=== PATIENT | female | born 1975 | race Caucasian/White ===

== ENCOUNTER 2025-02-01 19:35 | Emergency (ER) | payer OTHER, SELFPAY ==
--- OUTSIDE RECORDS SUMMARY | 2025-01-19 13:40 | XMS_ITS | Encounter Summary ---
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 Name Role Phone Unavailable Primary Care Provider Unavailabl e Reason for Visit * Reason Comments Mass On scalp Encounter Details Date Type Department Care Team (Late st Contact Info) Description 01/19/2025 1:40 PM EDT Office Visit [facility] [address] [place] [address] [place] [address] [place] [address] [place] [address] Scalp mass (Primary Dx) Social History Tobacco Use Types Packs/Day Years Used Date Smoking Tobacco: Every Day Cigarettes 30 Started: 1994 Smokeless Tobacco: Never Tobacco Cessation:Ready to Q uit: Not Asked; Counseling Given: Not Answered Alcohol Use Standard Drinks/Week Comments Not Currently 0 (1 standard drink = 0.6 oz pur e alcohol) Comments No Sex and Gender Information Value Date Recorded Sex Assigned at Not on file Legal Sex Female 9:16 AM EST Gender Identity Not on file Sexual Orientation Not on file documented as of this encounter Last Filed Vital Signs Vital Sign Reading Time Taken Comments Blood Pressure 122/84 01/19/2025 1:22 PM EDT Pulse - - Temperature - - Respiratory Rate - - Oxygen Saturation - - Inhaled Oxygen Concentration - - Weight 116.7 kg (257 lb 3.2 oz) 01/19/2025 1:22 PM EDT Height 165.1 cm (5' 5 ) 01/19/2025 1:22 PM EDT Body Mass Index 42.8 01/19/2025 1:22 PM EDT documented in this encounter Progress Notes * Gil Quintana MD - 01/19/2025 1:40 PM EDT Subjective: Patient ID: Sugey Sheppard is a 49 y.o. female. Chief Complaint Patient presents with Mass On scalp HPI Patients past medical, family and social histories were reviewed and updated. There were no changesexcept as noted. 49 female, presents with scalp mass. Present for quite some time-many years. Increasing in size. Now with some pain and tenderness. No history of infection, drainage, or excision. No Known Allergies Current Outpatient Medications: buPROPion (WELLBUTRIN XL) 150 mg Oral Tablet Sustained Release 24 hr, take one (1) tablet every dayby oral route., Disp: , Rfl: ergocalciferol (DRISDOL) 1,250 mcg (50,000 unit) Oral Capsule, , Disp: , Rfl: famotidine (PEPCID ORAL), Take 20 mg by mouth daily. (Patient taking differently: Take 20 mg by mouth as needed.), Disp: , Rfl: predniSONE (DELTASONE) 10 mg Oral Tablet, Take 4 tabs a day for 2 days, then 3 tabs a day for 2 days, then 2 tabs a day for 2 days, then one tab a day for four days (Patient not taking: Reported on 01/19/2025), Disp: 22 Tablet, Rfl: 0 Patient Active Problem List Diagnosis S/P left rotator cuff repair Scalp mass Social History Socioeconomic History Marital status: Single Spouse name: Not on file Number of children: Not on file Years of education: Not on file Highest education level: Not on file Occupational History Not on file Tobacco Use Smoking status: Every Day Average packs/day: 1 pack/day for 30.0 years (30.0 ttl pk-yrs) Types: Cigarettes Start date: 1994 Smokeless tobacco: Never Vaping Use Vaping status: Never Used Substance and Sexual Activity Alcohol use: Not Currently Drug use: Never Sexual activity: Not on file Other Topics Concern Not on file Social History Narrative Not on file Social Drivers of Health Financial Resource Strain: Not on file Food Insecurity: Not on file Transportation Needs: Not on file Physical Activity: Not on file Stress: Not on file Social Connections: Not on file Intimate Partner Violence: Not on file Housing Stability: Not on file Family History Problem Relation Age of Onset Anesth Problems Mother High Blood Pressure Father Arthritis Paternal Grandmother Review of Systems Constitutional: Positive for appetite change. Negative for activity change, fatigue and fever. HENT: Negative for congestion and sore throat. Respiratory: Negative for chest tightness and shortness of breath. Cardiovascular: Negative for chest pain and palpitations. Gastrointestinal: Negative for abdominal pain, constipation, diarrhea, nausea and vomiting. Musculoskeletal: Negative for back pain and myalgias. Neurological: Positive for dizziness. Negative for headaches. Objective: Vitals: 01/19/25 1322 BP: 122/84 BP Location: Left arm Patient Position: Sitting Weight: 257 lb 3.2 oz (116.7 kg) Height: 5' 5 (1.651 m) Body mass index is 42.8 kg/m??. Physical Exam Constitutional: Appearance: She is well-developed. HENT: Head: Normocephalic and atraumatic. Eyes: Conjunctiva/sclera: Conjunctivae normal. Pupils: Pupils are equal, round, and reactive to light. Cardiovascular: Rate and Rhythm: Normal rate and regular rhythm. Pulmonary: Effort: Pulmonary effort is normal. Breath sounds: Normal breath sounds. Abdominal: General: Bowel sounds are normal. Palpations: Abdomen is soft. Musculoskeletal: General: Normal range of motion. Cervical back: Normal range of motion. Comments: Mass on scalp, fixed, firm, approximately 3 cm Skin: General: Skin is warm. Neurological: Mental Status: She is alert and oriented to person, place, and time. Psychiatric: Behavior: Behavior normal. Thought Content: Thought content normal. Assessment & Plan Impression: Scalp mass Plan: 1. Proceed to operative for excisional biopsy of scalp mass. Risk discussed include bleeding, infection, seroma, recurrence. No follow-ups on file. documented in this encounter Plan of Treatment Scheduled Orders Name Type Priority Associated Diagnoses Orde r Schedule SURGICAL/PROCEDURE CASE REQUEST Procedures Routine Scalp mass Ordered: 01/19/2025 documented as of this encounter Visit Diagnoses Diagnosis Scalp mass- Primary Localized superficial swelling, mass, or lump documented in this encounter Historical Medications * This list may reflect changes made after this encounter. ergocalciferol (DRISDOL) 1,250 mcg (50,000 unit) Oral Capsule 01/05/2025 buPROPion (WELLBUTRIN XL) 150 mg Oral Tablet Sustained Release 24 hr take one (1) tablet every day by oral route. 01/01/2025 added in this encounter
--- OUTSIDE RECORDS SUMMARY | 2025-01-30 06:01 | XMS_ITS | Encounter Summary ---
Author [place] [address] Care Team Providers Care Soda Clerk Name Role Phone Unavailable Primary Care Provider Unavailabl e Reason for Visit * Auth/Cert/Inpt Specialty Diagnoses / Procedures Referred By Contac t Referred To Contact Diagnoses Scalp mass Scalp mass [R22.0] Procedures AR EXCISION TUMOR SOFT TISS FACE/SCALP SUBQ <2CM Excisional biopsy scalp mass Referral ID Status Reason Start Date Expiration Date Visits Re quested Visits Authorized [id number] 1 1 Encounter Details Date Type Department Care Team (Latest Contact Info) Description 01/30/2025 6:01 AM EDT - 01/30/2025 9:51 AM EDT Hospital Encounter CAM SAME DAY SURGERY [address] [place] [address] Gil Quintana MD [address] [place] [address] Scalp mass Discharge Disposition: Home or Self Care Social History Tobacco Use Types Packs/Day Years Used Date Smoking Tobacco: Every Day Cigarettes 1 30 Started: 1994 Smokeless Tobacco: Never Alcohol Use Standard Drinks/Week Comments Not Currently [...] Sign Reading Time Taken Comments Blood Pressure 147/80 01/30/2025 9:35 AM EDT Pulse 64 01/30/2025 9:35 AM EDT Temperature 36.1 C (97 F) 01/30/2025 9:35 AM EDT Respiratory Rate 16 01/30/2025 9:35 AM EDT Oxygen Saturation 100% 01/30/2025 9:35 AM EDT Inhaled Oxygen Concentration - - Weight 117.8 kg (259 lb 11.2 oz) 01/30/2025 6:27 AM EDT Height 165.1 cm (5' 5 ) 01/30/2025 6:27 AM EDT Body Mass Index 43.22 01/30/2025 6:27 AM EDT documented in this encounter Discharge Instructions * Discharge Instructions* Gil Quintana MD - 01/30/2025 7:11 AM EDT Images from the original note were not included. +++++++++++++++++++++++++++++++++++++++++++++++++++++++++++++++++++ [facility] Discharge Instructions - Following Anesthesia We appreciate the opportunity to care for you today! Here are a few reminders as you head home: A responsible adult, 18 years or older must be in attendance until tomorrow morning. Rest quietly today. May resume usual diet as tolerated or as directed by your surgeon. Do not drive or operate any machinery until tomorrow morning or as instructed. Do not make any legal or important decisions for the next 24 hours. Do not drink alcoholic beverages or take sleeping pills for 24 hours unless otherwise directed. If you received a nerve block for post-operative pain control, protect your blocked arm/leg. It maybe numb. Carefully pad your limb to prevent pressure sores and other injuries. Be careful with applying cold/warm to the blocked limb. Numbness will alter the sensation of the limb and could damage your skin if you cannot correctly feel the temperature. If you have questions or concerns regarding your anesthesia experience, please call our office at . Get Well Soon! [facility] +++++++++++++++++++++++++++++++++++++++++++++++++++++++++++++++++++ Call Surgeon if you have: Temperature greater than 100.4 Persistent nausea and vomiting Severe uncontrolled pain Redness, tenderness, or signs of infection (pain, swelling, redness, odor or green/yellow dischargearound the site) Difficulty breathing, headache or visual disturbances Hives Persistent dizziness or light-headedness Extreme fatigue Any other questions or concerns you may have after discharge In an emergency, call 911 or go to an Emergency Department at a nearby hospital It is important to bring a complete, current list of your medications to any medical appointments or hospitalizations. 1. It is OK to shower. No soaking/swimming 2. Activity as tolerated. It is OK to use stairs, and lift items as needed. 3. No driving if experiencing significant pain at the incisions sites, or if taking pain medication. 4. Diet as tolerated. Clear liquids if experiencing any nausea or vomiting. 5. Ok shower on Sunday 6. Please call [phone] Option #2 for a follow-up appointment in 7 to 14 days. documented in this encounter Medications at Time of Discharge buPROPion (WELLBUTRIN XL) 150 mg Oral Tablet Sustained Release 24 hr take one (1) tablet every day by oral route. 01/01/2025 ergocalciferol (DRISDOL) 1,250 mcg (50,000 unit) Oral Capsule 01/05/2025 famotidine (PEPCID ORAL) Take 20 mg by mouth daily. oxyCODONE-acetami nophen (PERCOCET) 5-325 mg Oral Tablet Take 1 Tablet by mouth every 6 hours as needed for Major Surgery/Traum a (G89.18). 15 Tablet 01/30/2025 documented as of this encounter Ordered Prescriptions Prescription Sig Dispense Quantity Refills Last Filled Start Date End Date oxyCODONE-acetamino phen (PERCOCET) 5-325 mg Oral Tablet Take 1 Tablet by mouth every 6 hours as needed for Major Surgery/Trau ma (G89.18). 15 Tablet 01/30/2025 documented in this encounter Discharge Disposition Disposition Code Departure Means Destination Comment s Home or Self Care Car Home documented in this encounter Progress Notes * Gil Quintana MD - 01/30/2025 8:41 AM EDT Attached media from the original note were not included. documented in this encounter H&P Notes * Julia Chamberlain NP - 01/30/2025 7:37 AM EDT H&P Update History & Physical Reviewed. Pt interviewed and examined. No changes in health. ROS: No cp, sob, fever, cough or recent illness. Vitals: 01/30/25 0625 BP: (!) 173/90 Pulse: 80 Resp: 17 Temp: 97.4 ??F (36.3 ??C) SpO2: 100% General= anxious, obese. Head= left frontal scalp mass, fixed, non-tender, no redness/drainage noted. CV=RRR. Lungs=CTA BL. Abd=Soft, nt, nd, +bs. Ext=No edema, 2+ radial and DP bilaterally. Anesthesia to manage BP. Source Note - Gil Quintana MD - 01/19/2025 1:40 PM [...] follow-ups on file. documented in this encounter Procedure Notes * Gil Quintana MD - 01/30/2025 9:38 AM EDT [facility] OPERATIVE/PROCEDURE NOTE Sugey Sheppard January 30, 2025 Body mass index is 43.22 kg/m??. Active Hospital Problems Diagnosis *Scalp mass PRE-OP DIAGNOSIS: Scalp mass [R22.0] POST-OP DIAGNOSIS: Scalp mass [R22.0] PROCEDURE(S): Procedure(s): Excisional biopsy scalp mass (7CM) SURGEON(S): Surgeons and Role: * Gil Quintana MD - Primary OR STAFF: [employer] Account Assistant: Bhargavi Wilde RN Scrub Finch: Gianna Ramesh RN Scrub Assist: China Corrigan CSA ANESTHESIA: Monitored Anesthesia Care SPECIMENS: ID Type Source Tests Collected by Time Destination 1 : SCALP MASS Tissue Scalp PATHOLOGY TISSUE REQUEST Gil Quintana MD 01/30/2025 0827 ESTIMATED BLOOD LOSS: 5 mL INDICATIONS FOR THE PROCEDURE: The patient is a 50-year-old female who presented to my office with a chronic scalp mass. This has been present for many years, have been increasing in size, and associate with pain and tenderness. DETAILS OF THE PROCEDURE: The patient was taken to the operating room and placed in the supine position on the operating room table. After adequate induction of MAC anesthesia, the patient's scalp was prepped and draped in standard surgical fashion. Next the area was infiltrated with 1/2% Marcaine with epinephrine. Next a vertical incision was made, and this was deepened through the dermis until the mass was identified. The mass was very large, and attached to the skull itself. This was taken down using blunt dissection as well as cautery. All elements of the mass were dissected free and passed off the table of the specimen. This measured at least 7 cm. Hemostasis was obtained. The wound was irrigated with saline and suctioned free. The wound was then closed with a running 4-0 Monocryl subcuticular stitch. At the end of the case all needle, sponge, and instrument counts were correct. The patient tolerated the procedure well and was transferred to the recovery room awake, alert, and instable condition. DISPOSITION/POST PROC COURSE: Stable to Post Anesthesia Care Unit M Micah Quintana MD Date: 01/30/2025 * Gil Quintana MD - 01/30/2025 8:43 AM EDT [facility] OPERATIVE/PROCEDURE NOTE Sugey Sheppard January 30, 2025 Body mass index is 43.22 kg/m??. Active Hospital Problems Diagnosis *Scalp mass PRE-OP DIAGNOSIS: Scalp mass [R22.0] POST-OP DIAGNOSIS: Scalp mass [R22.0] PROCEDURE(S): Procedure(s): Excisional biopsy scalp mass (7CM) SURGEON(S): Surgeons and Role: * Gil Quintana MD - Primary OR STAFF: [employer] Account Assistant: Bhargavi Wilde RN Scrub Finch: Gianna Ramesh RN Scrub Assist: China Corrigan CSA ANESTHESIA: Monitored Anesthesia Care SPECIMENS: ID Type Source Tests Collected by Time Destination 1 : SCALP MASS Tissue Scalp PATHOLOGY TISSUE REQUEST Gil Quintana MD 01/30/2025 0827 ESTIMATED BLOOD LOSS: 5 mL INDICATIONS FOR THE PROCEDURE: The patient is a 50-year-old female who presented to my office with a chronic scalp mass. This has been present for many years, have been increasing in size, and associate with pain and tenderness. DETAILS OF THE PROCEDURE: The patient was taken to the operating room and placed in the supine position on the operating room table. After adequate induction of MAC anesthesia, the patient's scalp was prepped and draped in standard surgical fashion. Next the area was infiltrated with 1/2% Marcaine with epinephrine. Next a vertical incision was made, and this was deepened through the dermis until the mass was identified. The mass was very large, and attached to the skull itself. This was taken down using blunt dissection as well as cautery. All elements of the mass were dissected free and passed off the table of the specimen. This measured at least 7 cm. Hemostasis was obtained. The wound was irrigated with saline and suctioned free. The wound was then closed with a running 4-0 Monocryl subcuticular stitch. At the end of the case all needle, sponge, and instrument counts were correct. The patient tolerated the procedure well and was transferred to the recovery room awake, alert, and instable condition. DISPOSITION/POST PROC COURSE: Stable to Post Anesthesia Care Unit Gil Quintana MD Date: 01/30/2025 documented in this encounter Nursing Notes * Julia Rao RN - 01/19/2025 2:48 PM EDT Images from the original note were not included. PREPARING FOR YOUR SURGERY Date of Surgery: 01.30.2025Sunday Arrival time: Your surgeon may have already provided this, check your paperwork from the office. Ifnot received, call your surgeon's office. Location: [facility] Medications on the Day of Surgery Take the following medications on the morning of surgery: Bupropion Medications to hold prior to surgery; Verify with your doctor for possibly discontinuing the following medications: blood thinners, aspirin, or anti-inflammatories. Stop taking all supplements 7 days prior to your surgery. Food, Drinks, Tobacco Do not eat any food after midnight. This includes gum, mints, candy, chewing tobacco, and dip. Unless otherwise instructed by your surgeon, you may consume water, Gatorade, Powerade, black coffee/tea(no milk, no cream/creamers, no sugar) up to two hours prior to your scheduled arrival time. No exceptions or substitutions to these restrictions. Do not smoke, vape, or use any type of tobacco or marijuana products within 24 hours prior to surgery. Smoking will also slow your rate of healing. It is advised that you do not smoke during the healing process. No alcohol 24 hours prior to surgery. Radio Communications Mechanician It is important to have a Radio Communications Mechanician, someone who is 18 years or older, to accompany you and remain in the facility for the duration of your surgery. This person should be available for the Perioperative Team, which includes your surgeon, to communicate with before, during and after your surgery. Because you are receiving anesthesia, someone is needed to drive you home and remain with you for at least 24 hours after surgery to make sure you are safe during that time We also recommend that no children be present on the day of surgery. If you have a concern, please reach out to our department [phone]. Hygiene Deering your teeth and gargle the morning of surgery. Shower the morning of surgery or the night before. Do not wear makeup (including eye makeup) lotion, powder, deodorant, perfume, or cologne. Do not shave the operative extremity or near the operative area. Remove nail djiboutian prior to surgery. This includes artificial nails and gel nail djiboutian. Personal Items Wear clean, simple, loose-fitting clothing (no jeans) and sturdy shoes (no flip flops, slides or crocs) to the hospital. Do not bring unnecessary valuables with you. It is policy that [facility] does not assume responsibility for lost, stolen or broken personal items that are brought in. Exceptions may be consideredfor items which are considered necessary for your healthcare. These items will be formally documented. Remove all jewelry prior to surgery to prevent injury. We will not tape wedding rings/bands Remove all body piercings prior to arrival. Plastic inserts are acceptable. Glasses and contacts will need to be removed prior to surgery. Please bring a case for them.. Bring with You Bring a copy of your Living Will and/or Durable Power of Associate Product Manager for Healthcare. Notify the Surgeon Notify your surgeon if you develop any illness (fever, cold, cough, sore throat, nausea, vomiting, skin rashes etc.) between now and surgery time Notify your surgeon and Pre-admission testing ([phone]) if you have any changes in your healthconditions or if any new medications are ordered between now and surgery.. Questions or Concerns? If you have any questions or concerns, feel free to call the Pre-Admission testing department at [phone]. We want to make sure you feel safe and have an excellent experience while you are here. Do not reply to this message through [facility] as it may not be answered promptly. Same Day Surgery Unit - [facility] at [phone]; [facility]: Park at Entrance 1A Main Entrance, NOT Outpatient Parking. Walk in atrium and go to javascript front end developer. Look for sign at information desk that states Surgery Check In . [facility] [place] [address]. DOORS OPEN AT 5: 30 AM SUN-SUN AND 6:00 AM ON SUNDAY AND 8:00 AM ON SUNDAY Surgical Site Infections FAQs What is a Surgical Site Infection (SSI)? A surgical site infection is an infection that occurs after surgery in the part of the body where the surgery took place. Most patients who have surgery do not develop an infection. However, infections develop in about 1 to 3 out of every 100 patients who have surgery. Some of the common symptoms of a surgical site infection are: Redness and pain around the area where you had surgery Drainage of cloudy fluid from your surgical wound. Fever Can SSIs be treated? Yes. Most surgical site infections can be treated with antibiotics. The antibiotic given to you depends on the bacteria (germs) causing the infection. Sometimes patients with SSIs also need another surgery to treat the infection. What are some of the things that hospitals are doing to prevent SSIs? To prevent SSIs, doctors, nurses, and other healthcare providers: Clean their hands and arms up to their elbows with an antiseptic agent just before the surgery. Clean their hands with soap and water or an alcohol-based hand rub before and after caring for eachpatient. May remove some of your hair immediately before your surgery using electric clippers if the hair isin the same area where the procedure will occur. They should not shave you with a razor. Wear special hair covers, masks, gowns, and gloves during surgery to keep the surgery area clean. Give you antibiotics before your surgery starts. In most cases, you should get antibiotics within 60 minutes before the surgery starts and the antibiotics should be stopped within 24 hours after surgery. Clean the skin at the site of your surgery with a special soap that kills germs. What can I do to help prevent SSIs? Before your surgery: Tell your doctor about other medical problems you may have. Health problems such as allergies, diabetes, and obesity could affect your surgery and your treatment. Quit smoking. Patients who smoke get more infections. Talk to your doctor about how you can quit before your surgery. Do not shave near where you will have surgery. Shaving with a razor can irritate your skin and makeit easier to develop an infection. At the time of your surgery: Speak up if someone tries to shave you with a razor before surgery. Ask why you need to be shaved and talk with your surgeon if you have any concerns. Ask if you will get antibiotics before surgery. After your surgery: Make sure that your healthcare providers clean their hands before examining you, either with soap and water or an alcohol-based hand rub. If you do not see your providers clean their hands, please ask them to do so. Family and friends who visit you should not touch the surgical wound or dressings. Family and friends should clean their hands with soap and water or an alcohol- based hand rub beforeand after visiting you. If you do not see them clean their hands, ask them to clean their hands. What do I need to do when I go home from the hospital? Before you go home, your doctor or nurse should explain everything you need to know about taking care of your wound. Make sure you understand how to care for your wound before you leave the hospital. Always clean your hands before and after caring for your wound. Before you go home, make sure you know who to contact if you have questions or problems after you get home. If you have any symptoms of an infection, such as redness and pain at the surgery site, drainage, or fever, call your doctor immediately. If you have additional questions, please ask your doctor or nurse. Developed and co-sponsored by The Society for Healthcare Epidemiology of [place] (ALVARENGA); InfectiousDiseases Society of [place] (IDSA); [employer] [facility] [employer]; Association for Professionals inInfection Control and Epidemiology (APIC); Centers for Disease Control and Prevention (CDC); and The Joint Commission. This information is not intended to replace advice given to you by your health care provider. Make sure you discuss any questions you have with your health care provider. , ANESTHESIA - COMMON SIDE EFFECTS (if present, these should resolve within 24 hours) TIREDNESS SHIVERING DIZZINESS DRY MOUTH MILD NAUSEA/VOMITING SORE THROAT OR HOARSENESS MILD PAIN OR DISCOMFORT IS NORMAL CALL THE SURGEON DAY OR NIGHT You have nausea or vomiting that doesn???t go away by the next morning. You experience severe pain not relieved by suggested medications. Thank you for letting us care for you. documented in this encounter Miscellaneous Notes * Plan of Care - Emani Blanc RN - 01/30/2025 8:52 AM EDT Problem: Potential for Infection Description: Related to: -Invasive lines (IV, CVD, Indwelling Urinary Catheter) -Alteration in skin integrity related to positioning during procedure -Surgical Site Goal: Patient will be free from infection Outcome: Adequate for Discharge Problem: Potential for injury Description: Related to: Procedure Goal: Patient is free from signs or symptoms of physical injury unrelated to the intended therapeutic effects of the procedure. Outcome: Adequate for Discharge documented in this encounter Plan of Treatment Pending Results Name Type Priority Associated Diagnoses Date /Time PATHOLOGY TISSUE REQUEST Lab Routine Scalp mass 01/30/2025 8:27 AM EDT Scheduled Orders Name Type Priority Associated Diagnoses Orde r Schedule PATHOLOGY TISSUE REQUEST Lab Timed Scalp mass Release Upon Ordering for 1 Occurrences starting 01/30/2025, 1 completed documented as of this encounter Visit Diagnoses Diagnosis Scalp mass- Primary Localized superficial swelling, mass, or lump documented in this encounter Admitting Diagnoses Diagnosis Scalp mass Localized superficial swelling, mass, or lump documented in this encounter Administered Medications Inactive Administered Medications - up to 1 most recent administrations Medication Order MAR Action Action Date Dose Rate Site acetaminophen (TYLENOL) tablet 1,000 mg 1,000 mg, Oral, PREPROCEDURE, 1 dose, Starting on Sun01/30/25 at 0645, Until Sun01/30/25 at 0648, Coanalgesic, Do not give if patient received acetaminophen within the last 6 hours Maximum adult dose of acetaminophen is 4000 mg from all sources in 24 hours., Pre-op (Holding/SDS Meds) Given 01/30/2025 6:48 AM EDT 1,000 mg dimenhyDRINATE (DRAMAMINE) 12.5-25 mg in sodium chloride 0.9% injection 12.5-25 mg, Intravenous, PRN, Starting on Sun01/30/25 at 0850, Until Sun01/30/25 at 1352, Nausea, Third Line Antiemetic, For persistent nausea unrelieved by other antiemetics. Begin with lowest dose unless otherwise directed. Give remainder of dose if nausea unrelieved in 20 minutes. May give total of two doses if needed. dilute each 50 mg with 10 mL 0.9% saline for IV use, PACU droPERidol (INAPSINE) injection 0.625 mg 0.625 mg, Intravenous, PRN, Starting on Sun01/30/25 at 0850, Until Sun01/30/25 at 1352, Nausea, First Line Antiemetic, If unable to give Zofran. Give second dose if nausea unrelieved in 10 minutes. May give total of two doses if needed., PACU fentaNYL (SUBLIMAZE) injection 25 mcg 25 mcg, Intravenous, EVERY 5 MIN PRN, Starting on Sun01/30/25 at 0850, Until Sun01/30/25 at 1352, Pain, For initial pain. Maximum dose not to exceed 100 mcg., PACU HYDROmorphone (DILAUDID) injection 0.25 mg 0.25 mg, Intravenous, EVERY 10 MIN PRN, Starting on Sun01/30/25 at 0850, Until Sun01/30/25 at 1352, Breakthrough Pain, Do not exceed 2 mg in one hour unless otherwise ordered by the Anesthesia Coordinator For pain unrelieved by fentanyl or oral opioid, PACU lactated ringers infusion Intravenous, at 50 mL/hr, PREPROCEDURE CONTINUOUS, Starting on Sun01/30/25 at 0645, Until Sun01/30/25 at 1352, To be given in SDS/Pre-op Holding Area, Pre-op (Holding/SDS Meds) IV Restarted 01/30/2025 8:04 AM EDT ondansetron (ZOFRAN) injection 4 mg 4 mg, Intravenous, ONCE PRN, 1 dose, Starting on Sun01/30/25 at 0850, Until Sun01/30/25 at 1352, Nausea, First Line Antiemetic, Do not give if patient received granisetron (Kytril) or ondansetron (Zofran) within 4 hours., PACU ondansetron (ZOFRAN-ODT) disintegrating tablet 8 mg 8 mg, Oral, ONCE PRN, 1 dose, Starting on Sun01/30/25 at 0850, Until Sun01/30/25 at 1352, Nausea, First Line Antiemetic, Do not give if patient received granisetron (Kytril) or ondansetron (Zofran) within 4 hours., PACU oxyCODONE (ROXICODONE) immediate release tablet 5 mg 5 mg, Oral, EVERY 1 HOUR PRN, Starting on Sun01/30/25 at 0850, Until Sun01/30/25 at 1352, Pain, When tolerating oral intake. Maximum dose not to exceed 10 mg unless otherwise directed by the Anesthesia Coordinator., PACU promethazine (PHENERGAN) 12.5 mg in sodium chloride 0.9% 10 mL injection 12.5 mg, Intravenous, PRN, Starting on Sun01/30/25 at 0850, Until Sun01/30/25 at 1352, Nausea, Second Line Antiemetic, For nausea unrelieved by droperidol or pre-op antiemetic. Begin with lowest dose unless otherwise directed. Give remainder of dose if nausea unrelieved in 20 minutes. Not to exceed 25 mg in one hour unless otherwise ordered by Anesthesia Coordinator. VESICANT , PACU promethazine (PHENERGAN) 6.25 mg in sodium chloride 0.9% 10 mL injection 6.25 mg, Intravenous, PRN, Starting on Sun01/30/25 at 0850, Until Sun01/30/25 at 1352, Nausea, Second Line Antiemetic, For nausea unrelieved by droperidol or pre-op antiemetic. Begin with lowest dose unless otherwise directed. Give remainder of dose if nausea unrelieved in 20 minutes. Not to exceed 25 mg in one hour unless otherwise ordered by Anesthesia Coordinator. VESICANT , PACU documented in this encounter Discontinued Medications Medication Sig Discontinue Reason Start Date End Da te predniSONE (DELTASONE) 10 mg Oral TabletIndications:Right hand pain,S/P arthroscopy of shoulder Take 4 tabs a day for 2 days, then 3 tabs a day for 2 days, then 2 tabs a day for 2 days, then one tab a day for four days Stop Taking at Discharge 04/05/2021 01/30/2025 documented as of this encounter Active and Recently Administered Medications Times are shown in EDT. Scheduled Medication Order 01/28/2025 01/29/2025 01/30/2025 ceFAZolin (ANCEF) IVPB 2 g 2 g, Intravenous, ONCE PREPROCEDURE, 1 dose, On Sun01/30/25 at 0645, Administer over 30 Minutes, Administer 30 minutes pre-op, Reason for Therapy: Surgical Prophylaxis, Pre-op (Antibiotic) 0645 (Due) PRN Medication Order 01/28/2025 01/29/2025 01/30/2025 acetaminophen (TYLENOL) tablet 1,000 mg (COMPLETED) 1,000 mg, Oral, PREPROCEDURE, 1 dose, Starting on Sun01/30/25 at 0645, Until Sun01/30/25 at 0648, Coanalgesic, Do not give if patient received acetaminophen within the last 6 hours Maximum adult dose of acetaminophen is 4000 mg from all sources in 24 hours., Pre-op (Holding/SDS Meds) 0648 (Given - Provid er: Payal Bailey RN) bacitracin Zinc-Polymyxin B (POLYSPORIN) topical ointment (CANCELED) INTRAPROCEDURE, Starting on Sun01/30/25 at 0850, Until Sun01/30/25 at 0951, Intra-op 0850 (Given - Provid er: Gil Quintana MD) BUPivacaine-EPINEPHrine (MARCAINE/SENSORCAINE) 0.5 %-1:200,000 injection (CANCELED) INTRAPROCEDURE, Starting on Sun01/30/25 at 0823, Until Sun01/30/25 at 0951, Intra-op 0823 (Given - Provid er: Gil Quintana MD) dimenhyDRINATE (DRAMAMINE) 12.5-25 mg in sodium chloride 0.9% injection 12.5-25 mg, Intravenous, PRN, Starting on Sun01/30/25 at 0850, Until Sun01/30/25 at 1352, Nausea, Third Line Antiemetic, For persistent nausea unrelieved by other antiemetics. Begin with lowest dose unless otherwise directed. Give remainder of dose if nausea unrelieved in 20 minutes. May give total of two doses if needed. dilute each 50 mg with 10 mL 0.9% saline for IV use, PACU droPERidol (INAPSINE) injection 0.625 mg 0.625 mg, Intravenous, PRN, Starting on Sun01/30/25 at 0850, Until Sun01/30/25 at 1352, Nausea, First Line Antiemetic, If unable to give Zofran. Give second dose if nausea unrelieved in 10 minutes. May give total of two doses if needed., PACU fentaNYL (SUBLIMAZE) injection 25 mcg 25 mcg, Intravenous, EVERY 5 MIN PRN, Starting on Sun01/30/25 at 0850, Until Sun01/30/25 at 1352, Pain, For initial pain. Maximum dose not to exceed 100 mcg., PACU HYDROmorphone (DILAUDID) injection 0.25 mg 0.25 mg, Intravenous, EVERY 10 MIN PRN, Starting on Sun01/30/25 at 0850, Until Sun01/30/25 at 1352, Breakthrough Pain, Do not exceed 2 mg in one hour unless otherwise ordered by the Anesthesia Coordinator For pain unrelieved by fentanyl or oral opioid, PACU lactated ringers infusion Intravenous, at 50 mL/hr, PREPROCEDURE CONTINUOUS, Starting on Sun01/30/25 at 0645, Until Sun01/30/25 at 1352, To be given in SDS/Pre-op Holding Area, Pre-op (Holding/SDS Meds) 0647 (New Bag - Prov ider: Payal Bailey RN)0803 (IV Paused - Provider: Fernie Gaviria CRNA - Comment: Switch to gravity)0804 (IV Restarted - Provider: Fernie Gaviria CRNA)0859 (Anesthesia Volume Adjustment - Provider: Fernie Gaviria CRNA)1352 (Due: Order Ending - Provider: Automatic Discharge Provider - Comment: [Order ends at this time. Document the following action when infusion is complete: Stopped]) ondansetron (ZOFRAN) injection 4 mg(Linked Group 1) 4 mg, Intravenous, ONCE PRN, 1 dose, Starting on Sun01/30/25 at 0850, Until Sun01/30/25 at 1352, Nausea, First Line Antiemetic, Do not give if patient received granisetron (Kytril) or ondansetron (Zofran) within 4 hours., PACU ondansetron (ZOFRAN-ODT) disintegrating tablet 8 mg(Linked Group 1) 8 mg, Oral, ONCE PRN, 1 dose, Starting on Sun01/30/25 at 0850, Until Sun01/30/25 at 1352, Nausea, First Line Antiemetic, Do not give if patient received granisetron (Kytril) or ondansetron (Zofran) within 4 hours., PACU oxyCODONE (ROXICODONE) immediate release tablet 5 mg 5 mg, Oral, EVERY 1 HOUR PRN, Starting on Sun01/30/25 at 0850, Until Sun01/30/25 at 1352, Pain, When tolerating oral intake. Maximum dose not to exceed 10 mg unless otherwise directed by the Anesthesia Coordinator., PACU promethazine (PHENERGAN) 12.5 mg in sodium chloride 0.9% 10 mL injection(Linked Group 2) 12.5 mg, Intravenous, PRN, Starting on Sun01/30/25 at 0850, Until Sun01/30/25 at 1352, Nausea, Second Line Antiemetic, For nausea unrelieved by droperidol or pre-op antiemetic. Begin with lowest dose unless otherwise directed. Give remainder of dose if nausea unrelieved in 20 minutes. Not to exceed 25 mg in one hour unless otherwise ordered by Anesthesia Coordinator. VESICANT , PACU promethazine (PHENERGAN) 6.25 mg in sodium chloride 0.9% 10 mL injection(Linked Group 2) 6.25 mg, Intravenous, PRN, Starting on Sun01/30/25 at 0850, Until Sun01/30/25 at 1352, Nausea, Second Line Antiemetic, For nausea unrelieved by droperidol or pre-op antiemetic. Begin with lowest dose unless otherwise directed. Give remainder of dose if nausea unrelieved in 20 minutes. Not to exceed 25 mg in one hour unless otherwise ordered by Anesthesia Coordinator. VESICANT , PACU Linked Groups Order Group 1: ondansetron (ZOFRAN) injection 4 mgJump to med 4 mg, Intravenous, ONCE PRN, 1 dose, Starting on Sun01/30/25 at 0850, Until Sun01/30/25 at 1352, Nausea, First Line Antiemetic, Do not give if patient received granisetron (Kytril) or ondansetron (Zofran) within 4 hours., PACU Or ondansetron (ZOFRAN-ODT) disintegrating tablet 8 mgJump to med 8 mg, Oral, ONCE PRN, 1 dose, Starting on Sun01/30/25 at 0850, Until Sun01/30/25 at 1352, Nausea, First Line Antiemetic, Do not give if patient received granisetron (Kytril) or ondansetron (Zofran) within 4 hours., PACU Group 2: promethazine (PHENERGAN) 6.25 mg in sodium chloride 0.9% 10 mL injectionJump to med 6.25 mg, Intravenous, PRN, Starting on Sun01/30/25 at 0850, Until Sun01/30/25 at 1352, Nausea, Second Line Antiemetic, For nausea unrelieved by droperidol or pre-op antiemetic. Begin with lowest dose unless otherwise directed. Give remainder of dose if nausea unrelieved in 20 minutes. Not to exceed 25 mg in one hour unless otherwise ordered by Anesthesia Coordinator. VESICANT , PACU Or promethazine (PHENERGAN) 12.5 mg in sodium chloride 0.9% 10 mL injectionJump to med 12.5 mg, Intravenous, PRN, Starting on Sun01/30/25 at 0850, Until Sun01/30/25 at 1352, Nausea, Second Line Antiemetic, For nausea unrelieved by droperidol or pre-op antiemetic. Begin with lowest dose unless otherwise directed. Give remainder of dose if nausea unrelieved in 20 minutes. Not to exceed 25 mg in one hour unless otherwise ordered by Anesthesia Coordinator. VESICANT , PACU documented in this encounter Orders Medications Ordered That Blaze ht Not Have Been Administered Count Last Ordered Date First Ordered Date bacitracin Zinc-Polymyxin B (POLYSPORIN) topical ointment 1 01/30/2025 BUPivacaine-EPINEPHrine (MARCAINE/SENSORCAINE) 0.5 %-1:200,000 injection 1 01/30/2025 dimenhyDRINATE (DRAMAMINE) 1 2.5-25 mg in sodium chloride 0.9% injection 1 01/30/2025 droPERidol (INAPSINE) injection 0.625 mg 1 01/30/2025 fentaNYL (SUBLIMAZE) injection 25 mcg 1 HYDROmorphone (DILAUDID) injection 0.25 mg 1 01/30/2025 ondansetron (ZOFRAN) injection 4 mg 1 01/30 ondansetron (ZOFRAN-ODT) dis integrating tablet 8 mg 1 01/30/2025 oxyCODONE (ROXICODONE) immed iate release tablet 5 mg 1 01/30/2025 promethazine (PHENERGAN) 12. 5 mg in sodium chloride 0.9% 10 mL injection 1 01/30/2025 promethazine (PHENERGAN) 6.2 5 mg in sodium chloride 0.9% 10 mL injection 1 01/30/2025 ceFAZolin (ANCEF) IVPB 2 g 1 01/29/2025 Discharge Count Last Ordered Date First Orde red Date DISCHARGE PATIENT 1 01/30/2025 documented in this encounter
--- OUTSIDE RECORDS SUMMARY | 2025-01-30 08:03 | XMS_ITS | Encounter Summary ---
Author Organization [place] [address] Care Team Providers Care Cashier General Name Role Phone Unavailable Primary Care Provider Unavailabl e Reason for Visit * Auth/Cert/Inpt Specialty Diagnoses / Procedures Referred By Contac t Referred To Contact Diagnoses Scalp mass Scalp mass [R22.0] Procedures UT EXCISION TUMOR SOFT TISS FACE/SCALP SUBQ <2CM Excisional biopsy scalp mass Referral ID Status Reason Start Date Expiration Date Visits Re quested Visits Authorized [id number] 1 1 Encounter Details Date Type Department Care Team (Late st Contact Info) Description 01/30/2025 8:03 AM EDT Anesthesia Event CAM [facility] [address] [facility] [place] [address] Jama Alvares MD [address] [place], [place] [id number] Record, Lady Cordero APRN [address] [place] [address] Anesthesia Record Procedure Summary Procedure Name Responsible Anesthesiologist Anesthesia Start Time Anesthesia Stop Time EXCISION OF FACE/LIP/SCALP/HEAD LESION (Head) Jama Alvares MD 01/30/25 0803 01/30/25 0907 Events Date Time Event Comment 01/30/2025 0711 0722 AN Equip Check 0803 An Start 0809 An Start Data 0809 Start Supplemental O2 Disabl es direct capture of O2 [ANES AGENT O2 [2278103966] and Air flow [ANES AGENT AIR [[id number]] variables into chart. 0809 Immediate Pre Anesthetic Ass es 0809 Anesthesia Ready 0820 Time out 0821 Incision 0901 an stop data 0907 Handoff I completed my SBAR handoff to the receiving nurse which has included the followin. Identification of the patient, family, or patient surrogate 2. Identification of the responsible practitioner 3. Pertinent medical history 4. Surgical procedure and reason for procedure 5. Intraoperative anesthetic management 6. All current lines, drains and respiratory support. 7. Outstanding follow up orders (X-rays, consults etc) 8. Expectations/Plans for the early post-procedure period 9. Opportunity for questions and acknowledgement of understanding from the receiving PACU/ICU team guide 906 An Stop Meds Name Total propofol (DIPRIVAN) injection 60 mg propofol (DIPRIVAN) infusion 10 mg/mL 33 8,675 mcg fentaNYL 50 MCG/ML INJ 100 mcg lidocaine injection 1% 40 mg ceFAZolin (ANCEF) IVPB 1 g 2 g lactated ringers infusion 500 mL * Agents Name O2 N2O Air * Blood No blood administrations on file. Lines, Drains, and Airways Type Details Placement Removal Peripheral IV 01/30/25; 0647; 22; 1; Left, Proximal; Forearm; Jhon RN; 1; None; 01/30/25; 0930; Therapy completed; Catheter intact, Dressing applied, No Complications 01/30/25 0647 by Payal Bailey RN 01/30/25 0930 by Emani Blanc, TAMAR Airway Placement Date: 01/18 11/11; Placement Time: 0812 (created via procedure documentation); Removal Date: 01/30/25; Removal Time: 1352 01/30/25 0812 by Fernie Gaviria CRNA 01/30/25 1352 by Discharge Provider, Automatic Incision/Wound 01/30/25; 0822; Head ; 01/30/25; 1352 01/30/25 0822 by Bhargavi Wilde, TAMAR 01/30/25 1352 by Discharge Provider, Automatic documented in this encounter Social History Tobacco Use Types Packs/Day Years Used Date Smoking Tobacco: Every Day Cigarettes 30 Started: 1994 Smokeless Tobacco: Never Alcohol Use Standard Drinks/Week Comments Not Currently 0 (1 standard drink = 0.6 oz pur e alcohol) Comments No Sex and Gender Information Value Date Recorded Sex Assigned at Not on file Legal Sex Female 9:16 AM EST Gender Identity Not on file Sexual Orientation Not on file documented as of this encounter Procedure Notes * Fernie Gaviria CRNA - 01/30/2025 8:11 AM EDTAssociated Order(s): Airway Intraop Airway Placement: Date/Time: 01/30/2025 8:12 AM documented in this encounter OR Notes * Anesthesia Postprocedure Evaluation - Jama Alvares MD - 01/30/2025 9:28 AM EDT Post-Anesthesia Evaluation Note Patient Name: Sugey Sheppard Patient Date: January 30, 2025 Post-Anesthesia Evaluation Patient Location: [facility] Post op vitals: stable Nausea controlled: yes Level of consciousness: awake, alert and oriented Post anesthesia pain: adequate analgesia Long acting local anesthetic: n/a Airway patency: patent Respiratory status: spontaneous ventilation Cardiovascular status: stable Hydration status: euvolemic Temperature: Normothermia Perioperative complications: NONE Vitals Value Taken Time BP 148/80 01/30/25 09:21 Resp 15 01/30/25 09:21 SpO2 100 % 01/30/25 09:21 Temp 36.2 ??C (97.2 ??F) 01/30/25 09:21 Pulse 72 01/30/25 09:21 * Anesthesia Preprocedure Evaluation - Jama Alvares MD - 01/30/2025 7:03 AM EDT Pre-Anesthesia Evaluation Note Patient Name: Sugey Sheppard Sex: female Patient : 1975 Age: 50 y.o. Patient Date: January 30, 2025 Procedure(s): Excisional biopsy scalp mass Anesthesia Evaluation Previous anesthesia. 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 Anesthesia Plan ASA 3 Last solid intake: The patient has not eaten within the last 8 hours. Last clear liquid intake: The patient has not had clear liquids within the last 2 hours. Last tobacco use: The patient has not used tobacco today. Anesthesia Plan: MAC Induction: intravenous Monitors: STD Informed consent Anesthetic plan and risks discussed with: patient. Chart Reviewed and patient examined documented in this encounter Miscellaneous Notes * PAT Pre Evaluation for Anesthesia - Lady Dimas APRN - 01/22/2025 4:29 PM EDT Pre-Anesthesia Evaluation Note Patient Name: Sugey Sheppard Sex: female Patient : 1975 Age: 49 y.o. Patient Date: January 22, 2025 Procedure(s): Excisional biopsy scalp mass Anesthesia Evaluation Previous anesthesia. 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 Anesthesia Plan Anesthesia Plan: MAC Chart Reviewed documented in this encounter Plan of Treatment Not on file documented as of this encounter Procedures Procedure Name Priority Date/Time Associated Diagnosis Comments INTRAOP AIRWAY PLACEMENT Routine 01/30/2025 8:12 AM EDT documented in this encounter Results * INTRAOP AIRWAY PLACEMENT (01/30/2025 8:12 AM EDT) Narrative [facility] - 01/30/2025 8:12 AM EDT Fernie Gaviria CRNA 01/30/2025 8:12 AM Intraop Airway Placement: Date/Time: 01/30/2025 8:12 AM us Jama Alvares MD [place] ANESTHESIA Final Result [facility] [address] [place] [id number] documented in this encounter Visit Diagnoses Not on filedocumented in this encounter Administered Medications Inactive Administered Medications - up to 1 most recent administrations Medication Order MAR Action Action Date Dose Rate Site ceFAZolin (ANCEF) IVPB 1 g Intravenous, PRN (Anesthesia), Starting on Sun01/30/25 at 0810, Until Sun01/30/25 at 0907, Administer over 30 Minutes, Anesthesia Intra-op Given 01/30/2025 8:10 AM EDT 2 g fentaNYL (SUBLIMAZE) injection Intravenous, PRN (Anesthesia), Starting on Sun01/30/25 at 0814, Until Sun01/30/25 at 0907, Anesthesia Intra-op Given 01/30/2025 8:17 AM EDT 50 mcg lactated ringers infusion Intravenous, at 50 mL/hr, PREPROCEDURE CONTINUOUS, Starting on Sun01/30/25 at 0645, Until Sun01/30/25 at 1352, To be given in SDS/Pre-op Holding Area, Pre-op (Holding/SDS Meds) IV Restarted 01/30/2025 8:04 AM EDT lidocaine 1% 10 mg/mL (1 %) injection Intravenous, PRN (Anesthesia), Starting on Sun01/30/25 at 0812, Until Sun01/30/25 at 0907, Anesthesia Intra-op Given 01/30/2025 8:12 AM EDT 40 mg propofol (DIPRIVAN) infusion 10 mg/mL Intravenous, CONTINUOUS PRN, Starting on Sun01/30/25 at 0814, Until Sun01/30/25 at 0907, Anesthesia Intra-op Rate/Dose Change 01/30/2025 8:48 AM EDT 50 mcg/kg/min 35.34 mL/hr propofoL (DIPRIVAN) injection Intravenous, PRN (Anesthesia), Starting on Sun01/30/25 at 0815, Until Sun01/30/25 at 0907, Anesthesia Intra-op Given 01/30/2025 8:15 AM EDT 60 mg documented in this encounter
--- OUTSIDE RECORDS SUMMARY | 2025-01-30 08:25 | XMS_ITS | Encounter Summary ---
Author Organization [place] [address] Care Team Providers Care Hvac Commercial Salesperson Name Role Phone Unavailable Primary Care Provider Unavailabl e Reason for Visit * Auth/Cert/Inpt Specialty Diagnoses / Procedures Referred By Contac t Referred To Contact Diagnoses Scalp mass Scalp mass [R22.0] Procedures IN EXCISION TUMOR SOFT TISS FACE/SCALP SUBQ <2CM Excisional biopsy scalp mass Referral ID Status Reason Start Date Expiration Date Visits Re quested Visits Authorized [id number] 1 1 Encounter Details Date Type Department Care Team (Late st Contact Info) Description 01/30/2025 8:25 AM EDT - 01/30/2025 9:35 AM EDT Surgery CAM [facility] [address] [place] [address] Gil Quintana MD [address] [place] [address] EXCISION OF FACE/LIP/SCALP/HEAD LESION Social History Tobacco Use Types Packs/Day Years [...] the original note were not included. +++++++++++++++++++++++++++++++++++++++++++++++++++++++++++++++++++ [facility] Discharge Instructions - Following Anesthesia We appreciate [...] our office at . Get Well Soon! [facility] +++++++++++++++++++++++++++++++++++++++++++++++++++++++++++++++++++ Call Surgeon if you have: [...] Ok shower on Sunday 6. Please call [phone] Option #2 for a follow-up appointment in [...] Quintana MD - 01/30/2025 9:38 AM EDT [facility] OPERATIVE/PROCEDURE NOTE Sugey Sheppard January 30, 2025 Body mass index is 43.22 kg/m??. Active Hospital Problems Diagnosis *Scalp mass PRE-OP DIAGNOSIS: Scalp mass [R22.0] POST-OP DIAGNOSIS: Scalp mass [R22.0] PROCEDURE(S): Procedure(s): Excisional biopsy scalp mass (7CM) SURGEON(S): Surgeons and Role: * Gil Quintana MD - Primary OR STAFF: African Studies Professor: Bhargavi Wilde RN Scrub Finch: Gianna Ramesh [...] Quintana MD - 01/30/2025 8:43 AM EDT [facility] OPERATIVE/PROCEDURE NOTE Sugey Sheppard January 30, 2025 Body mass index is 43.22 kg/m??. Active Hospital Problems Diagnosis *Scalp mass PRE-OP DIAGNOSIS: Scalp mass [R22.0] POST-OP DIAGNOSIS: Scalp mass [R22.0] PROCEDURE(S): Procedure(s): Excisional biopsy scalp mass (7CM) SURGEON(S): Surgeons and Role: * Gil Quintana MD - Primary OR STAFF: African Studies Professor: Bhargavi Wilde RN Scrub Finch: Gianna Ramesh [...] Ifnot received, call your surgeon's office. Location: [facility] Medications on the Day of Surgery Take [...] No alcohol 24 hours prior to surgery. Sammying Machine Operator It is important to have a Sammying Machine Operator, someone who is 18 years or older, [...] concern, please reach out to our department [phone]. Hygiene [place] your teeth and gargle the morning of surgery. Shower the morning of surgery or the night before. Do not wear makeup (including eye makeup) lotion, powder, deodorant, perfume, or cologne. Do not shave the operative extremity or near the operative area. Remove nail zambian prior to surgery. This includes artificial nails and gel nail zambian. Personal Items Wear clean, simple, loose-fitting clothing (no jeans) and sturdy shoes (no flip flops, slides or crocs) to the hospital. Do not bring unnecessary valuables with you. It is policy that [facility] does not assume responsibility for lost, stolen [...] your Living Will and/or Durable Power of Executive Admin for Healthcare. Notify the Surgeon Notify your surgeon if you develop any illness (fever, cold, cough, sore throat, nausea, vomiting, skin rashes etc.) between now and surgery time Notify your surgeon and Pre-admission testing ([phone]) if you have any changes in your healthconditions or if any new medications are ordered between now and surgery.. Questions or Concerns? If you have any questions or concerns, feel free to call the Pre-Admission testing department at [phone]. We want to make sure you feel safe and have an excellent experience while you are here. Do not reply to this message through [employer] as it may not be answered promptly. [facility] Day [facility] - [place] at [phone]; [place]: Park at Entrance 1A Main Entrance, NOT Outpatient Parking. Walk in atrium and go to front office representative. Look for sign at information desk that states Surgery Check In . [facility] [place] [address]. DOORS OPEN AT 5: 30 AM SUN-SUN [...] [place] (ALVARENGA); InfectiousDiseases Society of [place] (IDSA); [facility]; Association for Professionals inInfection Control [...] Primary Localized superficial swelling, mass, or lump Scalp mass Localized superficial swelling, mass, or [...] Given 01/30/2025 6:48 AM EDT 1,000 mg bacitracin Zinc-Polymyxin B (POLYSPORIN) topical ointment INTRAPROCEDURE, Starting on Sun01/30/25 at 0850, Until Sun01/30/25 at 0951, Intra-op Given 01/30/2025 8:50 AM EDT 1 Tube Head BUPivacaine-EPINEPHrine (MARCAINE/SENSORCAINE) 0.5 %-1:200,000 injection INTRAPROCEDURE, Starting on Sun01/30/25 at 0823, Until Sun01/30/25 at 0951, Intra-op Given 01/30/2025 8:23 AM EDT 12 mL Head dimenhyDRINATE (DRAMAMINE) 12.5-25 mg in sodium chloride [...] Count Last Ordered Date First Ordered Date dimenhyDRINATE (DRAMAMINE) 1 2.5-25 mg in sodium [...]
--- OUTSIDE RECORDS SUMMARY | 2025-02-01 20:02 | XMS_ITS | Encounter Summary ---
Author Organization [facility] [place] [address] Care Team Providers Care Paediatric Physiotherapist Name Role Phone Unavailable Primary Care Provider Unavailabl e Encounter Details Date Type Department Care Team (Latest Contact Info) Description 01/19/2025 Travel Social History Tobacco Use Types Packs/Day Years [...] on file documented as of this encounter Plan of Treatment Not on file documented as of this encounter Visit Diagnoses Not on filedocumented in this encounter
--- OUTSIDE RECORDS SUMMARY | 2025-02-01 20:02 | XMS_ITS | Clinical Summary ---
Author Organization [facility] Address [address] [place] [phone] Phone Care Team Providers Care Operating Room Surgical Technician Name Role Phone Unavailable Primary Care Provider Unavailabl e Allergies No known active allergies Medications famotidine (PEPCID ORAL) Take 20 mg by mouth daily. Active buPROPion (WELLBUTRIN XL) 150 mg Oral Tablet Sustained Release 24 hr take one (1) tablet every day by oral route. 5 Active ergocalciferol (DRISDOL) 1,250 mcg (50,000 unit) Oral Capsule 5 Active oxyCODONE-acetam inophen (PERCOCET) 5-325 mg Oral Tablet Take 1 Tablet by mouth every 6 hours as needed for Major Surgery/Tra morena (G89.18). 15 Tablet 5 Active predniSONE (DELTASONE) 10 mg Oral TabletIndication s:Right hand pain,S/P arthroscopy of shoulder Take 4 tabs a day for 2 days, then 3 tabs a day for 2 days, then 2 tabs a day for 2 days, then one tab a day for four days 22 Tablet 1 01/31/20 25 Discontinu ed(Stop Taking at Discharge) Active Problems Problem Noted Date Diagnosed Date Scalp mass 01/19/2025 S/P left rotator cuff repair 12/08/2020 Encounters Date Type Department Care Team Description 01/30/2025 8:25 AM EDT - 01/30/2025 9:35 AM EDT Surgery [facility] [address] [place] [address] Gil Quintana MD EXCISION OF FACE/LIP/SCALP/HEAD LESION 01/30/2025 8:03 AM EDT Anesthesia Event [facility] [address] [place] [phone] Jama Alvares MD Record, Lady Cordero, PARTS SALES MANAGER 01/30/2025 6:01 AM EDT - 01/30/2025 9:51 AM EDT Hospital Encounter CAM SAME DAY SURGERY [address] [place] [phone] Gil Quintana MD Scalp mass Discharge Disposition: Home or Self Care 01/30/2025 Travel 01/19/2025 1:40 PM EDT Office Visit SEP Gen Surgery Cam [address] [place] [phone] Gil Quintana MD Scalp mass (Primary Dx) 01/19/2025 Travel 01/02/2025 Telephone SEP WEIGHT MGT CAM [facility] [address] [place] [phone] Aime Catalina Gil Other 01/01/2025 Telephone SEP WEIGHT MGT CAM MED [address] [place] [phone] Anne Marie Reynoso MA Referral from Last 3 Months Surgical History Surgery Date Site/Laterality Comments HAND SURGERY Left CTR HYSTERECTOMY SHOULDER ARTHROSCOPY 07/23/2020 Left LEFT SHOULDER EXAM UNDER ANESTHESIA ARTHROSCOPY, ROTATOR REPAIR, KAREN HAMEED, LABRAL DEBRIDEMENT, BICEPS TENODESIS; Surgeon: Rudy Thurman MD; Location: [facility]; Service: Orthopedics Medical devices from this surgery are in the Medical Devices section. SHOULDER SURGERY Right SHOULDER SURGERY Left SHOULDER CLOSED REDUCTION 11/10/2020 Left LEFT SHOULDER INJECTION AND MANIPULATION UNDER ANESTHESIA; Surgeon: Rudy Thurman MD; Location: [facility]; Service: Orthopedics SECTION Medical History Medical History Date Comments Irritable bowel syndrome Heartburn Vitamin D deficiency Family History Medical History Relation Name Comments High Blood Pressure Father Anesth Problems Mother Arthritis Paternal Grandmother Relation Name Status Comments Father Alive Mother Alive Paternal Grandmother Social History Tobacco Use Types Packs/Day Years Used Date Smoking Tobacco: Every Day Cigarettes 09 18 Started: 1994 Smokeless Tobacco: Never Tobacco Cessation:Ready [...] on file Sexual Orientation Not on file Obstetrics History Last Filed Vital Signs Vital Sign Reading [...] Mass Index 43.22 01/30/2025 6:27 AM EDT Plan of Treatment Health Maintenance Due Date Last Done Comments Annual Wellness Exam 1978 DTaP/TDaP/Td (1 - Tdap) 1994 Hepatitis B Vaccine (1 of 3 - 19+ 3-dose series) 1994 Pneumococcal Vaccine 50+ (1 of 2 - PCV) 1994 Cervical Cancer Screening 01/27/1996 Pap Smear 01/27/1996 HPV/Pap Cotest 2005 Breast Cancer Screening 2015 Cologuard 01/27/2020 Colon Cancer Screening 01/27/2020 Colonoscopy 01/27/2020 FIT 01/27/2020 Sigmoidoscopy 01/27/2020 Virtual Colonography 01/27/2020 COVID-19 Vaccine ( - 2023-2 5 season) 2024 Low Dose Lung Cancer Screening 2025 Zoster (1 of 2) 2025 Influenza Vaccine (Season Ended) 2025 Meningococcal B Vaccine Aged Out No l onger eligible based on patient's age to complete this topic Medical Devices Implanted Type Area Back Tacker Device Identifier Shelf Expiration Date Model / Serial / Lot Screw [employer]odesis Biocomposite 7 X 23mm - [id number] Implanted:Qty: 1 on 07/23/2020 by Rudy Thurman MD at [facility] Left: Shoulder ARTHREX 01/18/2024 [id number] / / [id number] [place] Lock Swivel Biocomposite 4.75 Mm X 19.1mm - [id number] Implanted:Qty: 1 on 07/23/2020 by Rudy Thurman MD at [facility] Left: Shoulder ARTHREX 11/18/2023 [id number] / / [id number] Procedures Procedure Name Priority Date/Time Associated Diagnosis Comments INTRAOP AIRWAY PLACEMENT Routine 01/30/2025 8:12 AM EDT from Last 3 Months Results * INTRAOP AIRWAY PLACEMENT (01/30/2025 8:12 AM EDT) Narrative [facility] - 01/30/2025 8:12 AM EDT Fernie Gaviria CRNA 01/30/2025 8:12 AM Intraop Airway Placement: Date/Time: 01/30/2025 8:12 AM us Jama Alvares MD [place] ANESTHESIA Final Result Performing Organization Address City/State/[facility] Co de Phone Number [facility] [address] [phone] from Last 3 Months Insurance Anurag De. [address] [employer] [id number] [place] [phone]
--- OUTSIDE RECORDS SUMMARY | 2025-02-01 20:02 | XMS_ITS | Encounter Summary ---
Author Organization [place] [address] Care Team Providers Care Director Furniture Name Role Phone Unavailable Primary Care Provider Unavailabl e Reason for Visit * Reason Onset Date Comments Other 01/02/2025 Encounter Details Date Type Department Care Team (Late st Contact Info) Description 01/02/2025 Telephone SEP WEIGHT MGT [place] [id number] [place] [phone] Catalina Salomon Other Social History Tobacco Use Types Packs/Day Years Used Date Smoking Tobacco: Every Day Cigarettes 1 30 Smokeless Tobacco: Never Alcohol Use Standard Drinks/Week Comments Not Currently 0 (1 standard drink = 0.6 oz pur e alcohol) Comments No Sex and Gender Information Value Date Recorded Sex Assigned at Not on file Legal Sex Female 9:16 AM EST Gender Identity Not on file Sexual Orientation Not on file documented as of this encounter Miscellaneous Notes * Telephone Encounter - Zbigniew Boateng MA - 01/02/2025 10:31 AM EDT I tried to call Pt back but had to leave a voicemail requesting a call back. * Telephone Encounter - Gely Tamayo MA - 01/02/2025 9:43 AM EDT Referral is placed for Gen Surg. Anne Marie did scan referral in chart Lvm for pt to call back and ask for a Gen Surgery MA to get this scheduled with Dr Quintana. * Telephone Encounter - Catalina Salomon - 01/02/2025 8:08 AM EDT pt called wanting to speak directly to RUSTY Kenney in regards to a referral. Please reach out to pt documented in this encounter Plan of Treatment Not on file documented as of this encounter Visit Diagnoses Not on filedocumented in this encounter
--- OUTSIDE RECORDS SUMMARY | 2025-02-01 20:02 | XMS_ITS | Encounter Summary ---
Author Organization [facility] [place] [address] Care Team Providers Care Rugby Union Footballer Name Role Phone Unavailable Primary Care Provider Unavailabl e Encounter Details Date Type Department Care Team (Latest Contact Info) Description 01/30/2025 Travel Social History Tobacco Use Types Packs/Day [...]
--- OUTSIDE RECORDS SUMMARY | 2025-02-01 20:02 | XMS_ITS | Encounter Summary ---
Author Organization [place] [address] Care Team Providers Care Supervisor Spring Up Name Role Phone Unavailable Primary Care Provider Unavailabl e Reason for Visit * Reason Onset Date Comments Referral 01/01/2025 Encounter Details Date Type Department Care Team (Late st Contact Info) Description 01/01/2025 Telephone SEP WEIGHT MGT CAM MED [facility] [place] [phone] Anne Marie Reynoso MA Referral Social History Tobacco Use Types Packs/Day Years [...] encounter Miscellaneous Notes * Telephone Encounter - Anne Marie Reynoso MA - 01/01/2025 4:18 PM EDT Received referral via fax from [facility]. Pt was referred to the surgical department for a scalp mass. Called pt to discuss. LVM for pt to call back. Referral has been scanned in chart. documented in this encounter Plan of Treatment Not on file documented as of this encounter Visit Diagnoses Not on filedocumented in this encounter
[2025-02-01 20:05] VITALS: PULSE 79; O2SAT 97
[2025-02-01 20:06] VITALS: BP 138/101; PULSE 79; RESP 22; TEMP 36.9; O2SAT 96; BMI 42.4
--- NOTE | 2025-02-01 20:10 | ED_ITS ---
Discharge Plan Disposition Patient Disposition: Home, Self-Care Referrals Follow up/Referrals: Roger Carter MD [Primary Care Provider, Family Practice] - See instructions Activity Restrictions/Add. Instructions Additional Instructions/Restrictions: Call your family doctor to establish care for this visit to the emergency department and schedule follow-up within 48 hours to ensure improvement. If you have any worsening of your condition or any other concerning signs or symptoms, return to the emergency department or your primary care doctor for further evaluation. Call your surgeon tomorrow, 02/02 to discuss further management given swelling in your face. If he have swelling spread to the right side of face, difficulty swallowing, chewing, breathing, or any other concerns including fevers or chills, etc., return to the emergency department for further evaluatio n. Clinical Impressions Clinical Impression: Facial swelling, Post surgical complication Print Language Print Language: Sudanese Discharge ED Provider: Juice Jtet General Adult HPI General Chief complaint: Recheck/Abnormal Lab/Rx Stated complaint: mass removed from head,swollen Time Seen by Provider: 02/01/25 19:44 Mode of Arrival: Ambulatory Source of Information: Patient Description of Symptoms (Recalled from ER Triage Doc. by RN): pt reports she had a mass removed from her scalp sunday and now she is having postop swelling. History of Present Illness HPI narrative: Please note that above description of symptoms, in this electronic medical record under categorization of recalled from ER triage doctor by RN are reflective of an initial nursing assessment, however, is not reflective of my full history and physical exam that was personally taken and clarified. Consequentially, this preceding description of symptoms, which may include the patient's categorized chief complaint in the EMR, do not reflect my personal clinical impression, and the ultimate description of history of present illness and patient stated complaints should be deferred to this section of the note. Unless stated otherwise or congruent with this section of the note, additional signs, symptoms, or incongruence should be interpreted as inaccurate with my clinical impression. [facility] Disclaimer: The information contained in this section may have been updated after the patient was seen, as this information can be updated by other users. Social History Smoking Status: Current every day smoker alcohol intake: never current occupational status: employed Travel in the last 8 weeks?: None ROS Obtained: Yes All systems reviewed & no additional complaints except as documented Physical Exam General General appearance: alert Head Head exam: atraumatic and normocephalic Eye Eye exam: Present normal appearance, PERRL and EOMI Neck Neck exam: Present normal inspection, full ROM and trachea midline Respiratory Respiratory exam: Absent respiratory distress, wheezes, stridor, accessory muscle use or prolonged expiratory phase Cardiovascular Cardiovascular exam: Present other (Pulses equal symmetric in upper and lower extremities) Abdominal Exam Abdominal exam: Present soft; Absent distention, tenderness or pulsatile mass Extremities Exam Extremities exam: Absent edema Neurological Exam Neurological exam: Present alert, oriented X3 and CN II-XII intact; Absent motor sensory deficit Skin Skin exam: Present warm and dry; Absent diaphoresis or erythema Medical Decision Making Medical Records Medical records reviewed: Yes I reviewed the patient's medical records. Screening: Per USPSTF and CDC recommendations, given the prevalence of disease in our region, it is our hospital?s policy to screen for HIV and viral Hepatitis for all patients aged 18 and over and those with ongoing risk factors. Reginaldo Inquiry Pt receiving controlled substance: No Reginaldo was queried for this patient: No Vital Signs: 02/01/25 20:05 02/01/25 20:06 02/01/25 20:15 Temperature 98.4 F 98.4 F Temperature Source Temporal Artery Scan Temporal Artery Scan Pulse Rate 79 71 Pulse Rate [Right] 79 Respiratory Rate 22 16 Blood Pressure 138/85 Blood Pressure [Right Arm] 138/101 H Blood Pressure Mean [Right Arm] 113 Blood Pressure Source Automatic Cuff Blood Pressure Source [Right Arm] Blood Pressure Position Sitting Blood Pressure Position [Right Arm] 02 Sat by Pulse Oximetry 97 96 99 Oxygen Delivery Method Room Air 02/01/25 20:15 02/01/25 20:17 Temperature 98.4 F 98.4 F Temperature Source Temporal Artery Scan Temporal Artery Scan Pulse Rate 71 Pulse Rate [Right] 71 Respiratory Rate 16 16 Blood Pressure 138/85 Blood Pressure [Right Arm] 138/85 Blood Pressure Mean [Right Arm] 102 Blood Pressure Source Automatic Cuff Blood Pressure Source [Right Arm] Automatic Cuff Blood Pressure Position Sitting Blood Pressure Position [Right Arm] Sitting 02 Sat by Pulse Oximetry 99 Oxygen Delivery Method Room Air Room Air Medical Decision Narrative: This a 50-year-old female presenting with swelling in her face. She is she had a mass removed from her scalp 2 days prior to this visit. Since that time, has had progressive swelling on the left side of her face inferior to where this mass was removed. No vision changes, fevers, chills, difficulty breathing, swallowing, chewing, etc. Just objective swelling. Came in for further evaluation because clinic is closed. History obtained with patient and significant other. On my arrival, she is very clinically well, speaking full sentences, mildly swollen. Surgical incision site very clinically well. Well- healing and closed. No evidence of dehiscence. She does have a seroma underlying with mild fluctuance. No redness, warmth, or signs of infection. Some puffy edema on the left side of her face extending just inferior to her orbit. EOMs intact and not entrapped. Patient is in no acute distress. I considered doing labs and imaging, but I do not feel they would add anything. This looks to be just routine perioperative swelling and dependent edema in the setting of incision and removal of 7 cm mass from the scalp. Close return precautions were discussed, recommended she call her surgeon tomorrow, 02/02 in order to follow-up about this. She voiced her understanding. Discharged in hemodynamically stable condition Debridging Machine Operator disclaimer Much of this encounter note is an electronic rounding machine operator spoken language to printed text. Electronic rounding machine operator of the spoken language may permit errors. Although I have reviewed the note, some errors may still exist. Critical Care Critical Care Time Critical Care Time: No
[2025-02-01 20:15] VITALS: BP 138/85; PULSE 71; RESP 16; TEMP 36.9; O2SAT 99
[2025-02-01 20:17] VITALS: BP 138/85; PULSE 71; RESP 16; TEMP 36.9; O2SAT 99
== END 2025-02-01 20:18 | disposition home or self-care (01) ==
PROVIDERS: Emergency Provider Emergency Medicine; PCP Family Medicine
DX: R22.0 Localized swelling, mass and lump, head (principal); T81.9XXA Unspecified complication of procedure, initial encounter; F17.210 Nicotine dependence, cigarettes, uncomplicated
CPT/HCPCS: 99282